=== PATIENT | female | born 1965 | race Caucasian/White ===

== ENCOUNTER 2018-11-20 23:11 | Emergency (ER) | payer OTHER ==
[~2018-11-20] VITALS: Ht 149.9 cm; Wt 53.1 kg
[2018-11-21] MEDS ORDERED: PYRIDIUM200 MG (00:18)
[2018-11-21] MEDS ORDERED: CIPRO500 MG (00:18)
== END 2018-11-21 03:52 | disposition home or self-care (01) ==
LOC: ER 23:11
DX: N39.0 Urinary tract infection, site not specified (principal)

== ENCOUNTER 2019-11-06 10:52 | Outpatient (CLI) | payer OTHER ==
[~2019-11-06 10:52] MED LIST: CIPRO500 MG; PYRIDIUM200 MG
== END 2019-11-06 11:13 | disposition home or self-care (01) ==
LOC: TOM 10:52
PROVIDERS: ATTEND Internal Medicine
DX: R10.84 Generalized abdominal pain (principal); R10.2 Pelvic and perineal pain